=== PATIENT | male | born 1970 | race Caucasian/White ===

== ENCOUNTER 2018-03-28 18:14 | Emergency (ER) | payer OTHER ==
[~2018-03-28] VITALS: Ht 205.7 cm; Wt 75.0 kg
[2018-03-28 18:24] VITALS: BP 135/63; PULSE 88; RESP 12; TEMP 98.1; O2SAT 100
--- NOTE | 2018-03-28 19:18 | RADRPT ---
EXAM DATE: 03/28/2018 6:56 PM EDT AGE/SEX: 47 years / Male INDICATIONS: Pain, swelling and abrasion left posterior hand. Crush injury, caught hand between tras h truck and trash can CLINICAL DATA: This is the patient's initial encounter. Patient reports that signs and symptoms have been present for 1 day and indicates a pain score of 9/10. MEDICAL/SURGICAL HISTORY: None. None. COMPARISON: No prior exams available for comparison. FINDINGS: 3 views of the left hand demonstrate no fracture or dislocation. No soft tissue abnormality or concer comfort radiopaque foreign body is seen. There is a metallic ring on the third digit. CONCLUSION: No acute left hand abnormality is identified. Electronically signed by: Randy Lopez MD 03/28/2018 7:17 PM EDT
[2018-03-28 21:09] VITALS: BP 115/78; PULSE 61; RESP 18; O2SAT 100
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
[2018-03-28] MEDS ORDERED: DICL75TA PO (21:26)
[2018-03-28] MEDS ORDERED: ACETAMINOPHEN/HYDROcodone 325 MG/5 MG TAB PO ONE (21:30)
[2018-03-28] MEDS ORDERED: IBUPROFEN 600 MG TAB PO ONE (21:30)
== END 2018-03-28 22:25 | disposition home or self-care (01) ==
LOC: NEPD 18:14
DX: S67.22XA Crushing injury of left hand, initial encounter (principal); W23.0XXA Caught, crushed, jammed, or pinched between moving objects, initial encounter
CPT/HCPCS: 73130; 99283